=== PATIENT | male | born 1960 | race Caucasian/White ===

== ENCOUNTER 2017-02-16 12:59 | Inpatient (IN) | payer OTHER ==
[2017-02-16] MEDS: ASPIRIN 325 MG TAB PO (15:01)
[2017-02-16 15:28] LABS: ADD MAN DIFF? NO
[2017-02-16 15:30] LABS: BASOPHIL # 0.1 10^3/ul (0.0-0.1); BASOPHILS % 0.6 % (0.0-2.0); EOSINOPHILS # 0.1 10^3/ul (0.0-0.5); EOSINOPHILS % 0.8 % (0.0-7.0); HEMATOCRIT 34.8 % (42.0-52.0); HEMOGLOBIN 10.2 g/dl (14.0-18.0); LYMPHOCYTES # 1.2 10^3/ul (0.8-2.9); LYMPHOCYTES % 13.5 % (15.0-51.0); MEAN CORPUSCULAR HEMOGLOBIN 24.2 pg (29.0-33.0); MEAN CORPUSCULAR HGB CONC 29.3 g/dl (32.0-37.0); MEAN CORPUSCULAR VOLUME 82.5 fl (82.0-101.0); MEAN PLATELET VOLUME 9.7 fl (7.4-10.4); MONOCYTE # 0.7 10^3/ul (0.3-0.9); MONOCYTES % 8.1 % (0.0-11.0); NEUTROPHIL # 6.7 10^3/ul (1.6-7.5); NEUTROPHILS % 76.8 % (39.0-77.0); NUCLEATED RED BLOOD CELLS% 0.3 /100WBC (0.0-0.0); PLATELET COUNT 361 10^3/UL (140-415); RED BLOOD COUNT 4.22 10^6/ul (4.70-6.10); RED CELL DISTRIBUTION WIDTH 17.5 % (11.5-14.5)
[2017-02-16 15:30] LABS: WHITE BLOOD COUNT 8.7 10^3/ul (4.8-10.8)
[2017-02-16 15:50] LABS: ANION GAP 18 (8-16); BLOOD UREA NITROGEN 37 mg/dl (7-20); CALCIUM 8.6 mg/dl (8.4-10.2); CARBON DIOXIDE 22 mmol/L (21-31); CHLORIDE 111 mmol/L (97-110); GLUCOSE 122 mg/dl (70-220); POTASSIUM 4.2 mmol/L (3.5-5.1); SODIUM 147 mmol/L (135-144)
[2017-02-16 16:01] LABS: B-TYPE NATRIURETIC PEPTIDE 13800 PG/ML (0-125)
[2017-02-16 16:09] LABS: TROPONIN-I < 0.012 ng/ml (0.00-0.12)
[2017-02-16] MEDS: FUROSEMIDE 40 MG INJ IV (17:59)
[2017-02-16] MEDS ORDERED: ONDANSETRON 4 MG INJ IV ×2 (18:30→22:00)
[2017-02-16] MEDS ORDERED: ACETAMINOPHEN 325 MG TAB PO ×2 (18:30→22:00)
[2017-02-16] MEDS ORDERED: ACETAMINOPHEN 650 MG SUPP PR (22:00)
[2017-02-16] MEDS ORDERED: BISACODYL (EC) 5 MG TAB PO (22:00)
[2017-02-16] MEDS ORDERED: NACL 0.9% 3 ML SYG IV (22:00)
[2017-02-16] MEDS ORDERED: DOCUSATE SODIUM 100 MG CAP PO (22:00)
[2017-02-16] MEDS ORDERED: MAGNESIUM HYDROXIDE 30ML CUP PO (22:00)
[2017-02-16] MEDS ORDERED: NITROGLYCERIN (SL) 0.4 MG TAB SL ×2 (22:00)
[2017-02-16 22:11] LABS: CREATINE KINASE 52 IU/L (23-200)
[2017-02-16 22:23] LABS: CK INDEX 0.9; TROPONIN-I 0.014 ng/ml (0.00-0.12)
[2017-02-16 22:25] LABS: CK-MB 0.49 ng/ml (0.0-2.4)
[2017-02-16] MEDS: FUROSEMIDE 40 MG INJ IM (23:32)
[2017-02-17 00:02] LABS: ADD MAN DIFF? NO
[2017-02-17 00:03] LABS: WHITE BLOOD COUNT 7.5 10^3/ul (4.8-10.8)
[2017-02-17 00:03] LABS: ABNORMAL IP MESSAGE 1; BASOPHIL # 0.1 10^3/ul (0.0-0.1); BASOPHILS % 0.8 % (0.0-2.0); EOSINOPHILS # 0.1 10^3/ul (0.0-0.5); EOSINOPHILS % 1.7 % (0.0-7.0); HEMATOCRIT 33.3 % (42.0-52.0); HEMOGLOBIN 9.6 g/dl (14.0-18.0); LYMPHOCYTES # 1.2 10^3/ul (0.8-2.9); MEAN CORPUSCULAR HEMOGLOBIN 24.1 pg (29.0-33.0); MEAN CORPUSCULAR HGB CONC 28.8 g/dl (32.0-37.0); MEAN CORPUSCULAR VOLUME 83.7 fl (82.0-101.0); MEAN PLATELET VOLUME 9.8 fl (7.4-10.4); MONOCYTE # 0.5 10^3/ul (0.3-0.9); NEUTROPHIL # 5.7 10^3/ul (1.6-7.5); NEUTROPHILS % 75.2 % (39.0-77.0); NUCLEATED RED BLOOD CELLS% 0.5 /100WBC (0.0-0.0); PLATELET COUNT 340 10^3/UL (140-415); POSITIVE DIFF @See below; RED BLOOD COUNT 3.98 10^6/ul (4.70-6.10); RED CELL DISTRIBUTION WIDTH 17.6 % (11.5-14.5)
[2017-02-17 00:21] LABS: ANION GAP 18 (8-16); BLOOD UREA NITROGEN 36 mg/dl (7-20); CALCIUM 8.5 mg/dl (8.4-10.2); CARBON DIOXIDE 23 mmol/L (21-31); CHLORIDE 109 mmol/L (97-110); GLUCOSE 162 mg/dl (70-220); POTASSIUM 3.4 mmol/L (3.5-5.1); SODIUM 147 mmol/L (135-144)
[2017-02-17 00:32] LABS: TROPONIN-I 0.021 ng/ml (0.00-0.12)
[2017-02-17 03:09] LABS: CREATINE KINASE 53 IU/L (23-200)
[2017-02-17 03:22] LABS: TROPONIN-I 0.015 ng/ml (0.00-0.12)
[2017-02-17 03:28] LABS: CK-MB 0.54 ng/ml (0.0-2.4)
[2017-02-17] MEDS: PANTOPRAZOLE 40 MG INJ IV (06:10)
[2017-02-17] MEDS: FUROSEMIDE 40 MG INJ IV ×2 (06:12→17:19)
[2017-02-17] MEDS: SPIRONOLACTONE 25 MG TAB PO (09:22)
[2017-02-17] MEDS: ASPIRIN 81 MG TAB PO (09:23)
[2017-02-17] MEDS: ISOSORBIDE DINITRATE 20 MG TAB PO ×3 (09:23→20:37)
[2017-02-17] MEDS: CLOPIDOGREL 75 MG TAB PO (09:24)
[2017-02-17] MEDS: POTASSIUM CHLORIDE (SR) 8 MEQ CAP PO ×2 (09:24→20:37)
[2017-02-17] MEDS: METOPROLOL (XL) 50 MG TAB PO (09:25)
[2017-02-17] MEDS: ENOXAPARIN 40 MG/0.4 ML SYG SC (09:30)
[2017-02-17 10:28] LABS: CREATINE KINASE 49 IU/L (23-200)
[2017-02-17 10:40] LABS: CK INDEX 0.9; TROPONIN-I 0.019 ng/ml (0.00-0.12)
[2017-02-17 10:41] LABS: CK-MB 0.46 ng/ml (0.0-2.4)
[2017-02-17] MEDS: DIGOXIN 0.125 MG TAB PO (12:27)
[2017-02-17] MEDS: ATORVASTATIN 20 MG TAB PO (20:37)
[2017-02-17] MEDS: IPRATROPIUM (NEB) 0.5 MG/2.5 ML AMP HHN (21:45)
[2017-02-17 21:47] LABS: DIGOXIN < 0.4 ng/ml (1.0-2.0)
[2017-02-17] MEDS: ZOLPIDEM 5 MG TAB PO (22:05)
[2017-02-18] MEDS: FUROSEMIDE 40 MG INJ IV ×2 (06:43→17:31)
[2017-02-18] MEDS: PANTOPRAZOLE 40 MG INJ IV (06:43)
[2017-02-18] MEDS: IPRATROPIUM (NEB) 0.5 MG/2.5 ML AMP HHN ×4 (08:20→20:36)
[2017-02-18] MEDS: POTASSIUM CHLORIDE (SR) 8 MEQ CAP PO ×2 (08:28→21:14)
[2017-02-18] MEDS: SPIRONOLACTONE 25 MG TAB PO (08:28)
[2017-02-18] MEDS: CLOPIDOGREL 75 MG TAB PO (08:28)
[2017-02-18] MEDS: METOPROLOL (XL) 50 MG TAB PO (08:28)
[2017-02-18] MEDS: ASPIRIN 81 MG TAB PO (08:28)
[2017-02-18] MEDS: ISOSORBIDE DINITRATE 20 MG TAB PO ×2 (08:29→12:33)
[2017-02-18] MEDS: ENOXAPARIN 40 MG/0.4 ML SYG SC (08:31)
[2017-02-18] MEDS ORDERED: IPRATROPIUM (NEB) 0.5 MG/2.5 ML AMP HHN (09:00)
[2017-02-18 11:01] LABS: ANION GAP 18 (8-16); BLOOD UREA NITROGEN 30 mg/dl (7-20); CALCIUM 8.2 mg/dl (8.4-10.2); CARBON DIOXIDE 27 mmol/L (21-31); CHLORIDE 104 mmol/L (97-110); CREATININE 1.25 mg/dl (0.61-1.24); GLUCOSE 82 mg/dl (70-220); POTASSIUM 3.1 mmol/L (3.5-5.1); SODIUM 146 mmol/L (135-144)
[2017-02-18 11:03] LABS: MAGNESIUM 1.7 mg/dl (1.7-2.5)
[2017-02-18 11:03] LABS: PHOSPHORUS 4.5 mg/dl (2.5-4.9)
[2017-02-18 11:33] LABS: CHOL/HDL RATIO 6.5 RATIO; HDL CHOLESTEROL 18 mg/dl (28-71); LDL CHOLESTEROL,CALCULATED 80 mg/dl; TRIGLYCERIDES 100 mg/dl (0-149)
[2017-02-18 11:33] LABS: CHOLESTEROL 118 mg/dl (100-200)
[2017-02-18] MEDS: DIGOXIN 0.125 MG TAB PO (12:32)
[2017-02-18] MEDS: DULOXETINE 20 MG CAP DR PO (14:54)
[2017-02-18] MEDS: ISOSORBIDE DINITRATE 10 MG TAB PO (21:14)
[2017-02-18] MEDS: ATORVASTATIN 20 MG TAB PO (21:15)
[2017-02-18] MEDS: ZOLPIDEM 5 MG TAB PO (23:29)
[2017-02-19] MEDS: PANTOPRAZOLE (EC) 40 MG TAB PO (05:49)
[2017-02-19] MEDS: FUROSEMIDE 40 MG INJ IV ×2 (05:50→17:42)
[2017-02-19] MEDS: IPRATROPIUM (NEB) 0.5 MG/2.5 ML AMP HHN ×4 (08:25→21:48)
[2017-02-19] MEDS: CLOPIDOGREL 75 MG TAB PO (08:54)
[2017-02-19] MEDS: POTASSIUM CHLORIDE (SR) 8 MEQ CAP PO ×2 (08:55→20:49)
[2017-02-19] MEDS: ISOSORBIDE DINITRATE 10 MG TAB PO ×3 (08:55→21:36)
[2017-02-19] MEDS: SPIRONOLACTONE 25 MG TAB PO (08:55)
[2017-02-19] MEDS: ASPIRIN 81 MG TAB PO (08:55)
[2017-02-19] MEDS: DULOXETINE 20 MG CAP DR PO (08:55)
[2017-02-19] MEDS: METOPROLOL (XL) 50 MG TAB PO (08:56)
[2017-02-19] MEDS: ENOXAPARIN 40 MG/0.4 ML SYG SC (08:58)
[2017-02-19 09:18] LABS: ADD MAN DIFF? NO
[2017-02-19 09:28] LABS: BASOPHIL # 0.1 10^3/ul (0.0-0.1); BASOPHILS % 0.7 % (0.0-2.0); EOSINOPHILS # 0.2 10^3/ul (0.0-0.5); HEMATOCRIT 33.7 % (42.0-52.0); HEMOGLOBIN 10.1 g/dl (14.0-18.0); LYMPHOCYTES # 0.9 10^3/ul (0.8-2.9); LYMPHOCYTES % 9.9 % (15.0-51.0); MEAN CORPUSCULAR HEMOGLOBIN 24.2 pg (29.0-33.0); MEAN CORPUSCULAR VOLUME 80.6 fl (82.0-101.0); MEAN PLATELET VOLUME 10.1 fl (7.4-10.4); MONOCYTE # 0.6 10^3/ul (0.3-0.9); MONOCYTES % 6.1 % (0.0-11.0); NEUTROPHIL # 7.3 10^3/ul (1.6-7.5); PLATELET COUNT 338 10^3/UL (140-415); RED BLOOD COUNT 4.18 10^6/ul (4.70-6.10); RED CELL DISTRIBUTION WIDTH 17.4 % (11.5-14.5)
[2017-02-19 09:53] LABS: CREATINE KINASE 28 IU/L (23-200)
[2017-02-19 09:54] LABS: ANION GAP 17 (8-16); BLOOD UREA NITROGEN 29 mg/dl (7-20); CALCIUM 8.6 mg/dl (8.4-10.2); CARBON DIOXIDE 28 mmol/L (21-31); CHLORIDE 103 mmol/L (97-110); CREATININE 1.16 mg/dl (0.61-1.24); GLUCOSE 86 mg/dl (70-220); POTASSIUM 3.2 mmol/L (3.5-5.1); SODIUM 145 mmol/L (135-144)
[2017-02-19 10:04] LABS: CK INDEX 1.1
[2017-02-19 10:11] LABS: TROPONIN-I < 0.012 ng/ml (0.00-0.12)
[2017-02-19] MEDS: DIGOXIN 0.125 MG TAB PO (13:44)
[2017-02-19] MEDS: ATORVASTATIN 20 MG TAB PO (20:49)
[2017-02-19] MEDS: ZOLPIDEM 5 MG TAB PO (23:27)
[2017-02-20] MEDS: FUROSEMIDE 40 MG INJ IV (05:24)
[2017-02-20] MEDS: PANTOPRAZOLE (EC) 40 MG TAB PO (05:25)
[2017-02-20] MEDS: SPIRONOLACTONE 25 MG TAB PO (08:24)
[2017-02-20] MEDS: DULOXETINE 20 MG CAP DR PO (08:24)
[2017-02-20] MEDS: ASPIRIN 81 MG TAB PO (08:24)
[2017-02-20] MEDS: CLOPIDOGREL 75 MG TAB PO (08:24)
[2017-02-20] MEDS: ISOSORBIDE DINITRATE 10 MG TAB PO ×3 (08:25→20:34)
[2017-02-20] MEDS: POTASSIUM CHLORIDE (SR) 8 MEQ CAP PO ×2 (08:25→20:34)
[2017-02-20] MEDS: METOPROLOL (XL) 50 MG TAB PO (08:25)
[2017-02-20] MEDS: ENOXAPARIN 40 MG/0.4 ML SYG SC (08:27)
[2017-02-20] MEDS: IPRATROPIUM (NEB) 0.5 MG/2.5 ML AMP HHN ×4 (09:34→21:15)
[2017-02-20] MEDS: DIGOXIN 0.125 MG TAB PO (12:21)
[2017-02-20 15:27] LABS: ANION GAP 18 (8-16); BLOOD UREA NITROGEN 31 mg/dl (7-20); CALCIUM 8.7 mg/dl (8.4-10.2); CARBON DIOXIDE 26 mmol/L (21-31); CHLORIDE 101 mmol/L (97-110); CREATININE 1.34 mg/dl (0.61-1.24); GLUCOSE 111 mg/dl (70-220); POTASSIUM 4.1 mmol/L (3.5-5.1); SODIUM 141 mmol/L (135-144)
[2017-02-20] MEDS: FUROSEMIDE 40 MG TAB PO (17:33)
[2017-02-20] MEDS: ATORVASTATIN 20 MG TAB PO (20:34)
[2017-02-20] MEDS: BENAZEPRIL 10 MG TAB PO (20:34)
[2017-02-21] MEDS: FUROSEMIDE 40 MG TAB PO ×2 (05:41→17:25)
[2017-02-21] MEDS: PANTOPRAZOLE (EC) 40 MG TAB PO (05:41)
[2017-02-21] MEDS: IPRATROPIUM (NEB) 0.5 MG/2.5 ML AMP HHN ×3 (08:15→16:04)
[2017-02-21 08:30] LABS: ANION GAP 16 (8-16); BLOOD UREA NITROGEN 33 mg/dl (7-20); CALCIUM 8.4 mg/dl (8.4-10.2); CARBON DIOXIDE 30 mmol/L (21-31); CHLORIDE 101 mmol/L (97-110); CREATININE 1.24 mg/dl (0.61-1.24); GLUCOSE 81 mg/dl (70-220); POTASSIUM 3.8 mmol/L (3.5-5.1); SODIUM 143 mmol/L (135-144)
[2017-02-21] MEDS: SPIRONOLACTONE 25 MG TAB PO (09:29)
[2017-02-21] MEDS: DULOXETINE 20 MG CAP DR PO (09:29)
[2017-02-21] MEDS: CLOPIDOGREL 75 MG TAB PO (09:29)
[2017-02-21] MEDS: METOPROLOL (XL) 50 MG TAB PO (09:29)
[2017-02-21] MEDS: POTASSIUM CHLORIDE (SR) 8 MEQ CAP PO (09:29)
[2017-02-21] MEDS: ISOSORBIDE DINITRATE 10 MG TAB PO ×2 (09:29→12:56)
[2017-02-21] MEDS: ASPIRIN 81 MG TAB PO (09:29)
[2017-02-21] MEDS: ENOXAPARIN 40 MG/0.4 ML SYG SC (09:30)
[2017-02-21] MEDS: BENAZEPRIL 10 MG TAB PO (09:30)
[2017-02-21] MEDS: DIGOXIN 0.125 MG TAB PO (12:56)
== END 2017-02-21 19:00 | disposition home or self-care (01) | DRG 291 ==
LOC: MS4 18:15 → FTE 12:59 → MS4 02-17 02:15
DX: I13.0 Hypertensive heart and chronic kidney disease with heart failure and stage 1 through stage 4 chronic kidney disease, or unspecified chronic kidney disease (principal); I50.43 Acute on chronic combined systolic (congestive) and diastolic (congestive) heart failure; N17.9 Acute kidney failure, unspecified; N18.3 Chronic kidney disease, stage 3 (moderate); I25.10 Atherosclerotic heart disease of native coronary artery without angina pectoris; Z95.5 Presence of coronary angioplasty implant and graft; E78.00 Pure hypercholesterolemia, unspecified; E87.6 Hypokalemia; E78.5 Hyperlipidemia, unspecified; F32.9 Major depressive disorder, single episode, unspecified; I25.5 Ischemic cardiomyopathy; R94.31 Abnormal electrocardiogram [ECG] [EKG]
CPT/HCPCS: 36415; 71045; 80048; 80061; 80162; 82550; 82553; 83735; 83880; 84100; 84484; 85025; 93005; 94640; 94660; 94664; 96372; 96374; 99285-25

== ENCOUNTER 2017-06-04 21:23 | Inpatient (IN) | payer OTHER ==
[2017-06-04 21:51] LABS: ADD MAN DIFF? NO
[2017-06-04 21:55] LABS: BASOPHIL # 0.1 10^3/ul (0.0-0.1); BASOPHILS % 0.8 % (0.0-2.0); EOSINOPHILS # 0.2 10^3/ul (0.0-0.5); EOSINOPHILS % 2.2 % (0.0-7.0); HEMATOCRIT 46.6 % (42.0-52.0); HEMOGLOBIN 14.8 g/dl (14.0-18.0); LYMPHOCYTES # 3.1 10^3/ul (0.8-2.9); LYMPHOCYTES % 32.2 % (15.0-51.0); MEAN CORPUSCULAR HEMOGLOBIN 28.7 pg (29.0-33.0); MEAN CORPUSCULAR HGB CONC 31.8 g/dl (32.0-37.0); MEAN CORPUSCULAR VOLUME 90.3 fl (82.0-101.0); MEAN PLATELET VOLUME 9.9 fl (7.4-10.4); MONOCYTE # 0.7 10^3/ul (0.3-0.9); MONOCYTES % 6.7 % (0.0-11.0); NEUTROPHIL # 5.6 10^3/ul (1.6-7.5); NEUTROPHILS % 57.6 % (39.0-77.0); NUCLEATED RED BLOOD CELLS% 0.2 /100WBC (0.0-0.0); PLATELET COUNT 310 10^3/UL (140-415); RED BLOOD COUNT 5.16 10^6/ul (4.70-6.10); RED CELL DISTRIBUTION WIDTH 17.6 % (11.5-14.5)
[2017-06-04 21:55] LABS: WHITE BLOOD COUNT 9.7 10^3/ul (4.8-10.8)
[2017-06-04] MEDS ORDERED: ACETAMINOPHEN 325 MG TAB PO (22:00)
[2017-06-04] MEDS: FUROSEMIDE 40 MG INJ IV (22:05)
[2017-06-04] MEDS: ONDANSETRON 4 MG INJ IV (22:07)
[2017-06-04 22:10] LABS: AADO2 Arterial 506.7 mmHg (7.0-24.0); Allen Test ACCEPTAB; Arterial Blood Gas Oxygen Sat 98.9 mmHG (95.0-98.0); Arterial COHb 0.5 % (0.0-3.0); Arterial Fraction of Oxyhgb 98.1 % (93.0-99.0); Arterial HCO3 20.3 mmol/L (22.0-26.0); Arterial MetHb 0.3 % (0.0-1.5); Arterial pCO2 39.1 mmhg (35-45); Blood Gas IEPAP 15/5; MODE MASK - BIPAP; Site Right Radial
[2017-06-04] MEDS: ASPIRIN 81 MG TAB PO (22:11)
[2017-06-04] MEDS: NITROGLYCERIN 2% 1 GM OINT PKT TD (22:12)
[2017-06-04 22:16] LABS: INR 1.07; PT RATIO 1.1
[2017-06-04 22:17] LABS: PARTIAL THROMBOPLASTIN TIME 25.8 Sec (25.0-35.0)
[2017-06-04 22:21] LABS: ANION GAP 22 (8-16); BLOOD UREA NITROGEN 28 mg/dl (7-20); CALCIUM 8.6 mg/dl (8.4-10.2); CARBON DIOXIDE 20 mmol/L (21-31); CHLORIDE 109 mmol/L (97-110); CREATININE 1.89 mg/dl (0.61-1.24); GLUCOSE 234 mg/dl (70-220); POTASSIUM 4.3 mmol/L (3.5-5.1); SODIUM 147 mmol/L (135-144)
[2017-06-04] MEDS: NITROGLYCERIN 50 MG/D5W (PMX) 250 ML IV (22:38)
[2017-06-05] MEDS ORDERED: ZOLPIDEM 5 MG TAB PO (00:30)
[2017-06-05] MEDS ORDERED: NITROGLYCERIN (SL) 0.4 MG TAB SL (00:30)
[2017-06-05 04:13] LABS: ADD MAN DIFF? NO
[2017-06-05 04:14] LABS: WHITE BLOOD COUNT 15.4 10^3/ul (4.8-10.8)
[2017-06-05 04:14] LABS: BASOPHILS % 0.3 % (0.0-2.0); EOSINOPHILS % 0.1 % (0.0-7.0); HEMATOCRIT 41.7 % (42.0-52.0); HEMOGLOBIN 13.6 g/dl (14.0-18.0); LYMPHOCYTES # 0.7 10^3/ul (0.8-2.9); LYMPHOCYTES % 4.8 % (15.0-51.0); MEAN CORPUSCULAR HEMOGLOBIN 29.1 pg (29.0-33.0); MEAN CORPUSCULAR HGB CONC 32.6 g/dl (32.0-37.0); MEAN CORPUSCULAR VOLUME 89.1 fl (82.0-101.0); MEAN PLATELET VOLUME 9.9 fl (7.4-10.4); MONOCYTE # 0.7 10^3/ul (0.3-0.9); MONOCYTES % 4.4 % (0.0-11.0); NEUTROPHIL # 13.8 10^3/ul (1.6-7.5); PLATELET COUNT 227 10^3/UL (140-415); RED BLOOD COUNT 4.68 10^6/ul (4.70-6.10); RED CELL DISTRIBUTION WIDTH 17.7 % (11.5-14.5)
[2017-06-05 04:35] LABS: CREATINE KINASE 132 IU/L (23-200)
[2017-06-05 04:36] LABS: ANION GAP 20 (8-16); BLOOD UREA NITROGEN 32 mg/dl (7-20); CALCIUM 8.4 mg/dl (8.4-10.2); CARBON DIOXIDE 23 mmol/L (21-31); CHLORIDE 107 mmol/L (97-110); CREATININE 1.54 mg/dl (0.61-1.24); GLUCOSE 132 mg/dl (70-220); POTASSIUM 3.8 mmol/L (3.5-5.1); SODIUM 146 mmol/L (135-144)
[2017-06-05 04:45] LABS: CK INDEX 4.1
[2017-06-05 04:47] LABS: CK-MB 5.37 ng/ml (0.0-2.4)
[2017-06-05] MEDS: FUROSEMIDE 40 MG INJ IV ×2 (06:15→17:05)
[2017-06-05] MEDS: PANTOPRAZOLE (EC) 40 MG TAB PO (06:17)
[2017-06-05] MEDS: CLOPIDOGREL 75 MG TAB PO (09:12)
[2017-06-05] MEDS: SPIRONOLACTONE 25 MG TAB PO (09:13)
[2017-06-05] MEDS: ASPIRIN 81 MG TAB PO (09:13)
[2017-06-05] MEDS: METOPROLOL (XL) 50 MG TAB PO (09:14)
[2017-06-05] MEDS: ISOSORBIDE DINITRATE 20 MG TAB PO ×3 (09:15→21:16)
[2017-06-05] MEDS: BENAZEPRIL 10 MG TAB PO ×2 (09:15→21:16)
[2017-06-05 10:49] LABS: CREATINE KINASE 118 IU/L (23-200)
[2017-06-05 10:58] LABS: AADO2 Arterial 117.4 mmHg (7.0-24.0); Allen Test ACCEPTAB; Arterial Base Excess -1.3 mmol/L (-3.0-3); Arterial Blood Gas Oxygen Sat 94.4 mmHG (95.0-98.0); Arterial COHb 0.8 % (0.0-3.0); Arterial Fraction of Oxyhgb 93.4 % (93.0-99.0); Arterial MetHb 0.3 % (0.0-1.5); Arterial Total Hemglobin 13.5 g/dl (12.0-18.0); Arterial pCO2 37.5 mmhg (35-45); MODE NASAL CANNULA; Site Right Radial
[2017-06-05 11:01] LABS: CK INDEX 4.7
[2017-06-05 11:07] LABS: CK-MB 5.56 ng/ml (0.0-2.4)
[2017-06-05] MEDS: DIGOXIN 0.125 MG TAB PO (13:05)
[2017-06-05 19:11] LABS: CREATINE KINASE 93 IU/L (23-200)
[2017-06-05 19:25] LABS: CK INDEX 4.1
[2017-06-05 19:26] LABS: CK-MB 3.77 ng/ml (0.0-2.4); TROPONIN-I 0.802 ng/ml (0.00-0.12)
[2017-06-05] MEDS: ALBUTEROL/IPRATROPIUM (NEB) 3 ML AMP HHN (20:00)
[2017-06-05] MEDS: ATORVASTATIN 20 MG TAB PO (21:16)
[2017-06-05] MEDS: HEPARIN 5,000 UNIT/0.5 ML VIAL SC (21:23)
[2017-06-06 01:09] LABS: CREATINE KINASE 69 IU/L (23-200)
[2017-06-06 01:22] LABS: CK INDEX 3.5; TROPONIN-I 0.568 ng/ml (0.00-0.12)
[2017-06-06] MEDS: FUROSEMIDE 40 MG INJ IV ×2 (05:28→17:50)
[2017-06-06] MEDS: PANTOPRAZOLE (EC) 40 MG TAB PO (05:29)
[2017-06-06] MEDS: HEPARIN 5,000 UNIT/0.5 ML VIAL SC ×3 (05:36→23:06)
[2017-06-06 07:05] LABS: ADD MAN DIFF? NO
[2017-06-06 07:11] LABS: BASOPHIL # 0.1 10^3/ul (0.0-0.1); BASOPHILS % 0.7 % (0.0-2.0); EOSINOPHILS # 0.2 10^3/ul (0.0-0.5); EOSINOPHILS % 2.3 % (0.0-7.0); HEMATOCRIT 38.5 % (42.0-52.0); HEMOGLOBIN 12.3 g/dl (14.0-18.0); LYMPHOCYTES # 1.4 10^3/ul (0.8-2.9); LYMPHOCYTES % 15.4 % (15.0-51.0); MEAN CORPUSCULAR HEMOGLOBIN 28.9 pg (29.0-33.0); MEAN CORPUSCULAR HGB CONC 31.9 g/dl (32.0-37.0); MEAN CORPUSCULAR VOLUME 90.4 fl (82.0-101.0); MEAN PLATELET VOLUME 10.2 fl (7.4-10.4); MONOCYTE # 0.5 10^3/ul (0.3-0.9); MONOCYTES % 5.8 % (0.0-11.0); NEUTROPHIL # 6.6 10^3/ul (1.6-7.5); NEUTROPHILS % 75.6 % (39.0-77.0); PLATELET COUNT 220 10^3/UL (140-415); RED BLOOD COUNT 4.26 10^6/ul (4.70-6.10); RED CELL DISTRIBUTION WIDTH 17.8 % (11.5-14.5)
[2017-06-06 07:11] LABS: WHITE BLOOD COUNT 8.8 10^3/ul (4.8-10.8)
[2017-06-06 07:34] LABS: HDL CHOLESTEROL 48 mg/dl (28-71); LDL CHOLESTEROL,CALCULATED 72 mg/dl; TRIGLYCERIDES 142 mg/dl (0-149)
[2017-06-06 07:34] LABS: CHOLESTEROL 148 mg/dl (100-200)
[2017-06-06 07:42] LABS: ALANINE AMINOTRANSFERASE 26 IU/L (13-69); ALBUMIN 3.8 g/dl (3.3-4.9); ALBUMIN/GLOBULIN RATIO 1.18; ALKALINE PHOSPHATASE 69 IU/L (42-121); ANION GAP 20 (8-16); ASPARTATE AMINO TRANSFERASE 30 IU/L (15-46); BILIRUBIN,INDIRECT 0.8 mg/dl (0-1.1); BILIRUBIN,TOTAL 0.8 mg/dl (0.2-1.3); BLOOD UREA NITROGEN 35 mg/dl (7-20); CALCIUM 8.6 mg/dl (8.4-10.2); CARBON DIOXIDE 26 mmol/L (21-31); CHLORIDE 102 mmol/L (97-110); CREATININE 1.37 mg/dl (0.61-1.24); GLUCOSE 102 mg/dl (70-220); SODIUM 144 mmol/L (135-144)
[2017-06-06] MEDS: CLOPIDOGREL 75 MG TAB PO (09:18)
[2017-06-06] MEDS: ISOSORBIDE DINITRATE 20 MG TAB PO ×3 (09:18→21:08)
[2017-06-06] MEDS: BENAZEPRIL 10 MG TAB PO ×2 (09:18→21:07)
[2017-06-06] MEDS: SPIRONOLACTONE 25 MG TAB PO (09:19)
[2017-06-06] MEDS: METOPROLOL (XL) 50 MG TAB PO (09:19)
[2017-06-06] MEDS: ASPIRIN 81 MG TAB PO (09:19)
[2017-06-06] MEDS: DIGOXIN 0.125 MG TAB PO (13:22)
[2017-06-06] MEDS: ATORVASTATIN 20 MG TAB PO (21:07)
[2017-06-07] MEDS: FUROSEMIDE 40 MG INJ IV (06:48)
[2017-06-07] MEDS: PANTOPRAZOLE (EC) 40 MG TAB PO (06:54)
[2017-06-07] MEDS: HEPARIN 5,000 UNIT/0.5 ML VIAL SC ×3 (06:58→21:52)
[2017-06-07 08:21] LABS: ADD MAN DIFF? NO
[2017-06-07 08:31] LABS: WHITE BLOOD COUNT 9.2 10^3/ul (4.8-10.8)
[2017-06-07 08:31] LABS: BASOPHIL # 0.1 10^3/ul (0.0-0.1); BASOPHILS % 0.5 % (0.0-2.0); EOSINOPHILS # 0.2 10^3/ul (0.0-0.5); EOSINOPHILS % 2.3 % (0.0-7.0); HEMATOCRIT 38.8 % (42.0-52.0); HEMOGLOBIN 12.1 g/dl (14.0-18.0); LYMPHOCYTES # 1.3 10^3/ul (0.8-2.9); LYMPHOCYTES % 14.5 % (15.0-51.0); MEAN CORPUSCULAR HEMOGLOBIN 28.2 pg (29.0-33.0); MEAN CORPUSCULAR HGB CONC 31.2 g/dl (32.0-37.0); MEAN CORPUSCULAR VOLUME 90.4 fl (82.0-101.0); MEAN PLATELET VOLUME 10.4 fl (7.4-10.4); MONOCYTE # 0.8 10^3/ul (0.3-0.9); MONOCYTES % 8.6 % (0.0-11.0); NEUTROPHIL # 6.8 10^3/ul (1.6-7.5); NEUTROPHILS % 73.8 % (39.0-77.0); PLATELET COUNT 241 10^3/UL (140-415); RED BLOOD COUNT 4.29 10^6/ul (4.70-6.10); RED CELL DISTRIBUTION WIDTH 17.2 % (11.5-14.5)
[2017-06-07 08:47] LABS: ANION GAP 18 (8-16); BLOOD UREA NITROGEN 39 mg/dl (7-20); CALCIUM 9.2 mg/dl (8.4-10.2); CARBON DIOXIDE 30 mmol/L (21-31); CHLORIDE 99 mmol/L (97-110); GLUCOSE 101 mg/dl (70-220); POTASSIUM 3.9 mmol/L (3.5-5.1); SODIUM 143 mmol/L (135-144)
[2017-06-07 08:51] LABS: MAGNESIUM 2.2 mg/dl (1.7-2.5)
[2017-06-07 08:51] LABS: PHOSPHORUS 4.6 mg/dl (2.5-4.9)
[2017-06-07] MEDS: ASPIRIN 81 MG TAB PO (09:32)
[2017-06-07] MEDS: CLOPIDOGREL 75 MG TAB PO (09:33)
[2017-06-07] MEDS: SPIRONOLACTONE 25 MG TAB PO (09:33)
[2017-06-07] MEDS: ISOSORBIDE DINITRATE 20 MG TAB PO ×3 (09:33→21:47)
[2017-06-07] MEDS: BENAZEPRIL 10 MG TAB PO (09:33)
[2017-06-07] MEDS: METOPROLOL (XL) 50 MG TAB PO (09:34)
[2017-06-07] MEDS: DIGOXIN 0.125 MG TAB PO (12:47)
[2017-06-07] MEDS: ATORVASTATIN 20 MG TAB PO (21:47)
[2017-06-07] MEDS: ACETYLCYSTEINE 600 MG CAP PO (21:47)
[2017-06-08] MEDS: PANTOPRAZOLE (EC) 40 MG TAB PO (06:52)
[2017-06-08] MEDS: HEPARIN 5,000 UNIT/0.5 ML VIAL SC ×3 (06:53→21:35)
[2017-06-08] MEDS: SPIRONOLACTONE 25 MG TAB PO (08:20)
[2017-06-08] MEDS: ISOSORBIDE DINITRATE 20 MG TAB PO ×3 (08:20→21:29)
[2017-06-08] MEDS: CLOPIDOGREL 75 MG TAB PO (08:21)
[2017-06-08] MEDS: ASPIRIN 81 MG TAB PO (08:21)
[2017-06-08] MEDS: METOPROLOL (XL) 50 MG TAB PO (08:22)
[2017-06-08] MEDS ORDERED: LIDOCAINE 1% (MDV) 20 ML INJ (08:44)
[2017-06-08] MEDS ORDERED: IODIXANOL LOCM 100 ML BTL ×2 (08:44→10:35)
[2017-06-08] MEDS ORDERED: HEPARIN 1000 UNITS/ML 10 ML INJ (08:45)
[2017-06-08] MEDS ORDERED: VERAPAMIL 5 MG INJ (08:46)
[2017-06-08] MEDS ORDERED: METHYLPREDNISOLONE 125 MG INJ (08:46)
[2017-06-08] MEDS ORDERED: DIPHENHYDRAMINE 50 MG INJ (08:46)
[2017-06-08] MEDS ORDERED: NITROGLYCERIN (IC) 100 MCG/ML INJ (08:46)
[2017-06-08] MEDS ORDERED: MIDAZOLAM 1 MG/ML 2 ML INJ (08:46)
[2017-06-08] MEDS ORDERED: FENTAnyl 50 MCG/ML VIAL (08:46)
[2017-06-08] MEDS ORDERED: FUROSEMIDE 40 MG INJ IV (09:00)
[2017-06-08] MEDS ORDERED: morphine 2 MG INJ IV (11:00)
[2017-06-08] MEDS ORDERED: ACETAMINOPHEN 325 MG TAB PO (11:00)
[2017-06-08] MEDS ORDERED: OXYCODONE/ACETAMINOPHEN (5/325) TAB PO (11:00)
[2017-06-08] MEDS: SOD CHLORIDE 0.9% 1,000 ML IV (15:57)
[2017-06-08 17:21] LABS: ANION GAP 18 (8-16); BLOOD UREA NITROGEN 40 mg/dl (7-20); CALCIUM 9.1 mg/dl (8.4-10.2); CARBON DIOXIDE 26 mmol/L (21-31); CHLORIDE 101 mmol/L (97-110); CREATININE 1.24 mg/dl (0.61-1.24); GLUCOSE 162 mg/dl (70-220); POTASSIUM 4.4 mmol/L (3.5-5.1); SODIUM 141 mmol/L (135-144)
[2017-06-08] MEDS: DIGOXIN 0.125 MG TAB PO (19:53)
[2017-06-08] MEDS: FAMOTIDINE 20 MG INJ IV (19:53)
[2017-06-08] MEDS: ACETYLCYSTEINE 600 MG CAP PO ×2 (19:53→21:27)
[2017-06-08] MEDS: ATORVASTATIN 20 MG TAB PO (21:27)
[2017-06-09] MEDS: ZOLPIDEM 5 MG TAB PO (00:17)
[2017-06-09] MEDS: PANTOPRAZOLE (EC) 40 MG TAB PO (05:36)
[2017-06-09] MEDS: HEPARIN 5,000 UNIT/0.5 ML VIAL SC ×2 (05:37→15:07)
[2017-06-09 07:57] LABS: ADD MAN DIFF? NO
[2017-06-09 08:02] LABS: WHITE BLOOD COUNT 9.3 10^3/ul (4.8-10.8)
[2017-06-09 08:02] LABS: BASOPHILS % 0.1 % (0.0-2.0); HEMATOCRIT 35.6 % (42.0-52.0); HEMOGLOBIN 11.5 g/dl (14.0-18.0); LYMPHOCYTES # 0.8 10^3/ul (0.8-2.9); LYMPHOCYTES % 8.5 % (15.0-51.0); MEAN CORPUSCULAR HEMOGLOBIN 28.9 pg (29.0-33.0); MEAN CORPUSCULAR HGB CONC 32.3 g/dl (32.0-37.0); MEAN CORPUSCULAR VOLUME 89.4 fl (82.0-101.0); MEAN PLATELET VOLUME 10.3 fl (7.4-10.4); MONOCYTE # 0.6 10^3/ul (0.3-0.9); MONOCYTES % 6.1 % (0.0-11.0); NEUTROPHIL # 7.9 10^3/ul (1.6-7.5); NEUTROPHILS % 84.7 % (39.0-77.0); PLATELET COUNT 220 10^3/UL (140-415); RED BLOOD COUNT 3.98 10^6/ul (4.70-6.10); RED CELL DISTRIBUTION WIDTH 15.8 % (11.5-14.5)
[2017-06-09 08:25] LABS: ANION GAP 12 (8-16); BLOOD UREA NITROGEN 38 mg/dl (7-20); CALCIUM 9.2 mg/dl (8.4-10.2); CARBON DIOXIDE 30 mmol/L (21-31); CHLORIDE 106 mmol/L (97-110); CREATININE 1.14 mg/dl (0.61-1.24); GLUCOSE 104 mg/dl (70-220); POTASSIUM 4.4 mmol/L (3.5-5.1); SODIUM 144 mmol/L (135-144)
[2017-06-09] MEDS: METOPROLOL (XL) 50 MG TAB PO (09:10)
[2017-06-09] MEDS: ASPIRIN 81 MG TAB PO (09:10)
[2017-06-09] MEDS: CLOPIDOGREL 75 MG TAB PO (09:10)
[2017-06-09] MEDS: SPIRONOLACTONE 25 MG TAB PO (09:10)
[2017-06-09] MEDS: ACETYLCYSTEINE 600 MG CAP PO (09:10)
[2017-06-09] MEDS: ISOSORBIDE DINITRATE 20 MG TAB PO ×3 (09:11→21:10)
[2017-06-09] MEDS: DIGOXIN 0.125 MG TAB PO (13:18)
[2017-06-09 15:35] LABS: CREATINE KINASE 35 IU/L (23-200)
[2017-06-09 15:48] LABS: CK INDEX 3.5
[2017-06-09 15:52] LABS: CK-MB 1.22 ng/ml (0.0-2.4)
[2017-06-09 15:53] LABS: TROPONIN-I 0.198 ng/ml (0.00-0.12)
[2017-06-09] MEDS: ATORVASTATIN 20 MG TAB PO (21:09)
== END 2017-06-09 21:20 | disposition home or self-care (01) | DRG 250 ==
LOC: TEL 06-05 20:11 → E/R 21:23 → ICU 06-08 14:33 → TEL 06-08 17:57 → MS4 06-08 19:44
PROC: 02703ZZ Dilation of Coronary Artery, One Artery, Percutaneous Approach (ICD-10-PCS; principal; 2017-06-08 08:32)
PROC: 4A023N7 Measurement of Cardiac Sampling and Pressure, Left Heart, Percutaneous Approach (ICD-10-PCS; 2017-06-08 08:32)
PROC: B211YZZ Fluoroscopy of Multiple Coronary Arteries using Other Contrast (ICD-10-PCS; 2017-06-08 08:32)
PROC: B215YZZ Fluoroscopy of Left Heart using Other Contrast (ICD-10-PCS; 2017-06-08 08:32)
PROC: 4A133R1 Monitoring of Arterial Saturation, Peripheral, Percutaneous Approach (ICD-10-PCS; 2017-06-08 08:32)
PROC: 5A09357 Assistance with Respiratory Ventilation, Less than 24 Consecutive Hours, Continuous Positive Airway Pressure (ICD-10-PCS; 2017-06-08 08:32)
DX: I21.A1 Myocardial infarction type 2 (principal); I50.23 Acute on chronic systolic (congestive) heart failure; J96.01 Acute respiratory failure with hypoxia; I13.0 Hypertensive heart and chronic kidney disease with heart failure and stage 1 through stage 4 chronic kidney disease, or unspecified chronic kidney disease; D64.9 Anemia, unspecified; N18.9 Chronic kidney disease, unspecified; I25.10 Atherosclerotic heart disease of native coronary artery without angina pectoris; E78.00 Pure hypercholesterolemia, unspecified; I25.5 Ischemic cardiomyopathy; Z79.82 Long term (current) use of aspirin; D72.829 Elevated white blood cell count, unspecified; Z95.5 Presence of coronary angioplasty implant and graft
CPT/HCPCS: 36600; 71045; 80048; 80053; 80061; 82550; 82553; 82803; 83735; 84100; 84484; 85025; 85610; 85730; 93005; 93306; 93458; 94660; 94664; 96365; 96375; 99291-25

== ENCOUNTER 2018-04-27 06:52 | Inpatient (IN) | payer OTHER ==
[2018-04-27 08:21] LABS: ADD MAN DIFF? NO
[2018-04-27 08:23] LABS: WHITE BLOOD COUNT 7.6 10^3/ul (4.8-10.8)
[2018-04-27 08:23] LABS: BASOPHIL # 0.1 10^3/ul (0.0-0.1); BASOPHILS % 0.7 % (0.0-2.0); EOSINOPHILS # 0.2 10^3/ul (0.0-0.5); EOSINOPHILS % 2.5 % (0.0-7.0); HEMATOCRIT 36.9 % (42.0-52.0); HEMOGLOBIN 11.8 g/dl (14.0-18.0); LYMPHOCYTES # 1.2 10^3/ul (0.8-2.9); LYMPHOCYTES % 16.4 % (15.0-51.0); MEAN CORPUSCULAR HEMOGLOBIN 30.6 pg (29.0-33.0); MEAN CORPUSCULAR VOLUME 95.6 fl (82.0-101.0); MEAN PLATELET VOLUME 10.1 fl (7.4-10.4); MONOCYTE # 0.6 10^3/ul (0.3-0.9); MONOCYTES % 7.3 % (0.0-11.0); NEUTROPHIL # 5.5 10^3/ul (1.6-7.5); NEUTROPHILS % 72.7 % (39.0-77.0); PLATELET COUNT 188 10^3/UL (140-415); RED BLOOD COUNT 3.86 10^6/ul (4.70-6.10); RED CELL DISTRIBUTION WIDTH 13.9 % (11.5-14.5)
[2018-04-27 08:43] LABS: PROTIME 13.3 Sec (11.9-14.9)
[2018-04-27 08:44] LABS: ANION GAP 10 (5-13); CALCIUM 9.1 mg/dl (8.4-10.2); CARBON DIOXIDE 25 mmol/L (21-31); CHLORIDE 109 mmol/L (97-110); CHOL/HDL RATIO 4.2 RATIO; CHOLESTEROL 143 mg/dl (100-200); CREATININE 1.16 mg/dl (0.61-1.24); Estimated GFR > 60 mL/min (>60); GLUCOSE 99 mg/dl (70-220); HDL CHOLESTEROL 34 mg/dl (28-71); LDL CHOLESTEROL,CALCULATED 87 mg/dl; POTASSIUM 3.6 mmol/L (3.5-5.1); SODIUM 144 mmol/L (135-144); TRIGLYCERIDES 111 mg/dl (0-149)
[2018-04-27] MEDS: FAMOTIDINE 20 MG TAB PO (08:47)
[2018-04-27] MEDS: DIPHENHYDRAMINE 50 MG CAP PO (08:47)
[2018-04-27] MEDS: DIAZEPAM 5 MG TAB PO (08:47)
[2018-04-27] MEDS: SOD CHLORIDE 0.45% 1,000 ML IV (08:48)
[2018-04-27 08:53] LABS: BLOOD UREA NITROGEN 27 mg/dl (7-20)
[2018-04-27] MEDS ORDERED: HEPARIN 1000 UNITS/ML 10 ML INJ (09:07)
[2018-04-27] MEDS ORDERED: VERAPAMIL 5 MG INJ (09:07)
[2018-04-27] MEDS ORDERED: NITROGLYCERIN (IC) 100 MCG/ML INJ (09:07)
[2018-04-27] MEDS ORDERED: LIDOCAINE 1% (MDV) 20 ML INJ (09:07)
[2018-04-27] MEDS ORDERED: MIDAZOLAM 1 MG/ML 2 ML INJ (09:07)
[2018-04-27] MEDS ORDERED: IODIXANOL LOCM 100 ML BTL (09:07)
[2018-04-27] MEDS ORDERED: FENTAnyl 50 MCG/ML VIAL (09:09)
[2018-04-27] MEDS ORDERED: METHYLPREDNISOLONE 125 MG INJ (09:48)
[2018-04-27] MEDS ORDERED: BIVALIRUDIN 250MG /NS 50 ML 50 ML IVPB (10:53)
[2018-04-27] MEDS ORDERED: ASPIRIN 325 MG TAB (10:54)
[2018-04-27] MEDS ORDERED: CLOPIDOGREL 300 MG TAB (10:54)
[2018-04-27] MEDS: SOD CHLORIDE 0.9% 1,000 ML IV (11:01)
[2018-04-27] MEDS ORDERED: ACETAMINOPHEN 325 MG TAB PO ×2 (11:30→14:30)
[2018-04-27] MEDS ORDERED: ONDANSETRON 4 MG INJ IV ×2 (11:30→14:30)
[2018-04-27] MEDS ORDERED: OXYCODONE/ACETAMINOPHEN (5/325) TAB PO (11:30)
[2018-04-27] MEDS ORDERED: AL HYDROX/MG HYDROX/SIMETH 30 ML CUP PO (11:30)
[2018-04-27] MEDS: hydrALAzine 20 MG INJ IV (12:39)
[2018-04-27] MEDS ORDERED: HYDROCODONE/APAP (5/325) TAB PO (14:30)
[2018-04-27] MEDS ORDERED: NACL 0.9% 3 ML SYG IV (14:30)
[2018-04-27] MEDS ORDERED: DOCUSATE SODIUM 100 MG CAP PO (14:30)
[2018-04-27] MEDS: ACETYLCYSTEINE 600 MG CAP PO (21:16)
[2018-04-27] MEDS: ATORVASTATIN 20 MG TAB PO (21:17)
[2018-04-27] MEDS: RANOLAZINE (SR) 500 MG TAB PO (21:21)
[2018-04-27] MEDS: ZOLPIDEM 5 MG TAB PO (23:05)
[2018-04-28] MEDS: ZOLPIDEM 5 MG TAB PO (00:54)
[2018-04-28] MEDS: morphine 2 MG INJ IV ×2 (01:30→04:38)
[2018-04-28] MEDS: hydrALAzine 20 MG INJ IV (01:34)
[2018-04-28] MEDS: NITROGLYCERIN (SL) 0.4 MG TAB SL ×4 (02:00→04:39)
[2018-04-28] MEDS: LABETALOL HCL 20MG INJ IV (04:24)
[2018-04-28 05:47] LABS: ADD MAN DIFF? NO
[2018-04-28 05:52] LABS: WHITE BLOOD COUNT 11.4 10^3/ul (4.8-10.8)
[2018-04-28 05:52] LABS: BASOPHILS % 0.1 % (0.0-2.0); HEMOGLOBIN 12.9 g/dl (14.0-18.0); LYMPHOCYTES # 0.7 10^3/ul (0.8-2.9); LYMPHOCYTES % 6.4 % (15.0-51.0); MEAN CORPUSCULAR HEMOGLOBIN 30.9 pg (29.0-33.0); MEAN CORPUSCULAR HGB CONC 33.1 g/dl (32.0-37.0); MEAN CORPUSCULAR VOLUME 93.5 fl (82.0-101.0); MEAN PLATELET VOLUME 10.6 fl (7.4-10.4); MONOCYTE # 0.6 10^3/ul (0.3-0.9); MONOCYTES % 5.4 % (0.0-11.0); NEUTROPHILS % 87.8 % (39.0-77.0); PLATELET COUNT 199 10^3/UL (140-415); RED BLOOD COUNT 4.17 10^6/ul (4.70-6.10); RED CELL DISTRIBUTION WIDTH 13.6 % (11.5-14.5)
[2018-04-28 06:16] LABS: ALANINE AMINOTRANSFERASE 29 IU/L (13-69); ALBUMIN 3.7 g/dl (3.3-4.9); ALBUMIN/GLOBULIN RATIO 1.32; ALKALINE PHOSPHATASE 74 IU/L (42-121); ANION GAP 9 (5-13); ASPARTATE AMINO TRANSFERASE 17 IU/L (15-46); BILIRUBIN,INDIRECT 0.5 mg/dl (0-1.1); BILIRUBIN,TOTAL 0.5 mg/dl (0.2-1.3); BLOOD UREA NITROGEN 24 mg/dl (7-20); CALCIUM 8.8 mg/dl (8.4-10.2); CARBON DIOXIDE 25 mmol/L (21-31); CHLORIDE 105 mmol/L (97-110); CHOL/HDL RATIO 3.5 RATIO; CHOLESTEROL 153 mg/dl (100-200); CREATININE 1.01 mg/dl (0.61-1.24); Estimated GFR > 60 mL/min (>60); GLUCOSE 112 mg/dl (70-220); HDL CHOLESTEROL 43 mg/dl (28-71); LDL CHOLESTEROL,CALCULATED 96 mg/dl; MAGNESIUM 1.8 mg/dl (1.7-2.5); PHOSPHORUS 3.7 mg/dl (2.5-4.9); POTASSIUM 3.5 mmol/L (3.5-5.1); SODIUM 139 mmol/L (135-144); TOTAL PROTEIN 6.5 g/dl (6.1-8.1); TRIGLYCERIDES 71 mg/dl (0-149)
[2018-04-28 06:41] LABS: TROPONIN-I 0.129 ng/ml (0.000-0.120)
[2018-04-28 07:08] LABS: HEMOGLOBIN A1C 5.2 % (0-5.9)
[2018-04-28] MEDS: ACETYLCYSTEINE 600 MG CAP PO ×2 (09:28→17:47)
[2018-04-28] MEDS: ASPIRIN (EC) 81 MG TAB PO (09:28)
[2018-04-28] MEDS: RANOLAZINE (SR) 500 MG TAB PO (09:29)
[2018-04-28] MEDS: FUROSEMIDE 40 MG TAB PO (09:30)
[2018-04-28] MEDS: CLOPIDOGREL 75 MG TAB PO (09:30)
[2018-04-28] MEDS: ISOSORBIDE MONONITRATE(SR)60 MG TAB PO (09:30)
[2018-04-28] MEDS: METOPROLOL (XL) 50 MG TAB PO (09:31)
[2018-04-29] MEDS ORDERED: METOPROLOL (XL) 50 MG TAB PO (09:00)
== END 2018-04-28 18:39 | disposition home or self-care (01) | DRG 251 ==
LOC: SDS 06:52 → ICU 14:55
PROVIDERS: Internal Medicine
PROC: 02703ZZ Dilation of Coronary Artery, One Artery, Percutaneous Approach (ICD-10-PCS; principal; 2018-04-27 09:00)
PROC: 4A023N7 Measurement of Cardiac Sampling and Pressure, Left Heart, Percutaneous Approach (ICD-10-PCS; 2018-04-27 09:00)
PROC: B211YZZ Fluoroscopy of Multiple Coronary Arteries using Other Contrast (ICD-10-PCS; 2018-04-27 09:00)
DX: I25.110 Atherosclerotic heart disease of native coronary artery with unstable angina pectoris (principal); I13.0 Hypertensive heart and chronic kidney disease with heart failure and stage 1 through stage 4 chronic kidney disease, or unspecified chronic kidney disease; I50.22 Chronic systolic (congestive) heart failure; E78.5 Hyperlipidemia, unspecified; N18.9 Chronic kidney disease, unspecified; I25.5 Ischemic cardiomyopathy; D64.9 Anemia, unspecified; Z79.82 Long term (current) use of aspirin; Z79.02 Long term (current) use of antithrombotics/antiplatelets; Z95.5 Presence of coronary angioplasty implant and graft
CPT/HCPCS: 71045; 80048; 80053; 80061; 83036; 83735; 84100; 84484; 85025; 85610; 85730; 87081; 92920; 93005; 93454